=== PATIENT | female | born 1975 | race Caucasian/White ===

== ENCOUNTER 2022-02-01 08:40 | Outpatient (RCR) | payer MEDICAID, SELFPAY ==
[2022-02-01 09:11] VITALS: BP 137/84; PULSE 84; RESP 16; TEMP 36.3; BMI 23.3
--- NOTE | 2022-02-01 10:39 | RAD_ITS ---
STUDY: X-RAY CHEST REASON FOR EXAM: Female, 46 years old. RADIATION CYSTITIS TECHNIQUE: Frontal and lateral views of the chest. COMPARISON: None. FINDINGS: The lungs are clear and expanded. There is no demonstrated pleural abnormality. Normal size heart. Normal mediastinum and michael. Normal visualized pulmonary arteries. Normal visualized aortic arch and descending thoracic aorta. Normal visualized thoracic spine. Normal visualized ribs, clavicles, and shoulders. There is no demonstrated abnormality of the visualized soft tissue structures of the upper abdomen. RAD/Chest PA and Lateral IMPRESSION: Normal x-ray examination of the chest. Electronically Signed: Pratik Weber MD at 1:24 EDT ,
--- NOTE | 2022-02-01 10:58 | EKG12_ITS ---
Test Reason : HYPERBARIC CHAMBER Blood Pressure : / mmHG Vent. Rate : 067 BPM Atrial Rate : 067 BPM P-R Int : 136 ms QRS Dur : 072 ms QT Int : 406 ms P-R-T Axes : 066 086 080 degrees QTc Int : 429 ms Normal sinus rhythm with sinus arrhythmia Nonspecific ST abnormality Abnormal ECG Confirmed by ROLAND PINEDA, PEPE ([id number]), photography editor BRAYAN GRIFFIN ([id number]) on 02/02/2022 2:09:11 PM Referred By: SHONA Confirmed By:PEPE WATKINS MD
[2022-02-01 11:23] LABS: Absolute Lymphocyte Count 1.71 X10^3/uL (0.83-4.51); Absolute Neutrophil Count 5.8 X10^3/uL (2.0-7.7); Basophil# 0.05 X10^3/uL; Basophil% 0.6 % (0-1); Eosinophils% 1.1 % (0-5); Hematocrit 46.3 % (37-47); Hemoglobin 15.3 g/dL (12.0-15.0); Lymphocyte # 1.71 X10^3/ul (0.83-4.51); Lymphocyte % 19.3 % (19-41); Mean Corpuscular Hgb 32.1 pg (27.0-32.0); Mean Corpuscular Volume 97.1 fL (81-99); Mean Platelet Vol. 8.4 fl (6.2-12.0); Monocyte% 13.5 % (0-10); NRBC Flagged by Analyzer 0 % (0-5); Neutrophil # 5.78 X10^3/uL (2.7-7.7); Neutrophil % 65.3 % (47-70); Platelet Count 275 K/mm3 (150-450); RBC Distribution Width CV 13.2 % (11.6-14.6); RBC Distribution Width SD 47.3 fl (35.1-43.9); Red Blood Count 4.77 M/mm3 (4.2-5.4); White Blood Count 8.9 K/mm3 (4.4-11.0)
[2022-02-01 12:13] LABS: AST(SGOT) 16 U/L (15-37); Alanine Aminotransfer ALT/SGPT 20 U/L (13-56); Albumin, Serum 3.6 g/dL (3.2-5.0); Alkaline Phosphatase 99 U/L (45-117); BUN 15 mg/dL (7-18); BUN/Creat Ratio 24.5 RATIO (10-20); Calcium,Total 9.1 mg/dL (8.5-10.1); Chloride 109 mmol/L (98-107); Creatinine, Serum 0.61 mg/dL (0.55-1.02); EST Glomerular Filtration Rate 111 mL/min (>60); Est Glom Filt Rate - Afr Amer 134 mL/min (>60); Estimated Creatinine Clearance 90.17 ml/min; Globulin 3.5 g/dL (2.2-4.2); Glucose 95 mg/dL (74-106); Potassium 3.4 mmol/L (3.5-5.1); Protein, Total 7.1 g/dL (6.4-8.2); Sodium Level 143 mmol/L (136-145)
[2022-02-01 12:14] LABS: Anion Gap 6 (5-15)
--- NOTE | 2022-02-01 12:49 | HBO.CON.PC_ITS ---
Assessment & Plan Assessment/Plan (1) Radiation colitis: PLAN: Patient will be preop had for hyperbaric and chamber using protocol with 2 jean-pierre absolute CHELSEY for 90 minutes without air breaks 1 treatment per day delivered Sunday through Sunday unless otherwise specified for at least 30 treatments to start. Patient is to obtain chest x-ray, complete blood count, and an EKG. After preauthorization has been okayed we will continue with treatments. (2) Radiation cystitis: History of Present Illness Date of Service: 02/01/22 Chief Complaint: HBO consult for radiation cystitis Progress of Wound: This is a 46-year-old female with anal cancer and status post chemo and completed radiation on now she is complex planing of worsening rectal pain following cancer treatment. She has been seen by GI and is undergone many procedures EGDs colonoscopies and MRIs and they have decided she has ulcers in her rectal area. 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 At this point she is trying hyperbaric chamber treatments for the pain which has been shown to help with that. So patient be seen for radiation colitis and for several hyperalgesia's. She has severe pain on urination and is in constant pain all day. PFSH Allergy/AdvReac Type Severity Reaction Status Date / Time SEASONAL Allergy Other Uncoded 02/01/22 09:11 Social History Smoking Status: Current every day smoker ROS Constitutional Constitutional: Reports systems reviewed and no addt'l complaints, except as documented Eyes Eyes: Reports systems reviewed and no addt'l complaints, except as documented ENT HEENT: Reports systems reviewed and no addt'l complaints, except as documented Cardiovascular Cardiovascular: Reports systems reviewed and no addt'l complaints, except as documented Respiratory/Chest Respiratory/Chest: Reports systems reviewed and no addt'l complaints, except as documented Gastrointestinal Gastrointestinal: Reports weight changes and other Details: Severe pain in the rectum Genitourinary Genitourinary: Reports burning urination and difficulty urinating Musculoskeletal Musculoskeletal: Reports arthralgias Integumentary Integumentary: Reports systems reviewed and no addt'l complaints, except as documented Neurologic Neurologic: Reports systems reviewed and no addt'l complaints, except as documented Psychiatric Psychiatric: Reports systems reviewed and no addt'l complaints, except as documented Endocrine Endocrinology: Reports systems reviewed and no addt'l complaints, except as documented Hematologic/Lymphatic Hematologic/Lymphatic: Reports systems reviewed and no addt'l complaints, except as documented Allergic/Immunologic Allergic/Immunologic: Reports systems reviewed and no addt'l complaints, except as documented Physical Exam Physical Exam Const oriented x3 General Appearance: cooperative Exam Limitations: no limitations HEENT normocephalic Head and Scalp: normal to inspection Face and Sinus: normal facial exam Nose: external nose normal General Ear: hearing grossly impaired External Ear: external ears normal Mouth: oral and palatal mucosa normal Eyes PERRL General Eye: normal appearance of both eyes Neck full ROM General: normal visual inspection Resp normal respiratory effort Effort and Inspection: able to speak in complete sentences Auscultation: clear to auscultation bilaterally Cardio regular rate and regular rhythm Palpation: normal PMI Rate: regular rate Rhythm: regular rhythm GI Auscultation: normoactive bowel sounds Palpation: soft and no hepatosplenomegaly external exam normal Back/Spine Cervical Spine: cervical ROM normal Thoracic Spine / Upper Back: normal to inspection Lumbar Spine / Lower Back: normal to inspection Extremity normal to inspection General Extremity: normal exam except as noted Skin no rashes or lesions noted Neuro oriented x3 Psych Appearance: grossly normal Speech: normal speech Thought Content: normal thought content Judgement: judgement good Nursing Assessment and Debridement Post-Debridement Measurements and Additional Note: Post-Debridement Measurements/Treatment WC - Nurse 1 - General Ulcer Assessment Start: 02/01/22 08:57 Freq: Status: Active Protocol: [email or web address].LOWEXT Activity Type Activity Date Activity User E-sign Co-sign Detail Recorded Client Recorded Date Recorded By Document 02/01/22 09:11 [facility] [id number] 02/01/22 09:12 [facility] 02/01/22 09:11 Height and Weight Height 5 ft 2 in Weight 128 lb Weight in Pounds 128.0 lbs Weight Measurement Method Estimated by Patient Body Mass Index (BMI) 23.3 BMI Classification Normal BSA - Ni 1.58 Vital Signs Temperature (97.8 F-99.1 F) 97.3 F L Temperature Source Temporal Pulse Rate (60-100 beats/min) 84 Pulse Location Monitor Respiratory Rate (12-18 breaths/min) 16 Respiratory rate source Observation Oxygen Delivery Method Room Air Blood Pressure (90/60-120/80 mm Hg) 137/84 H Blood Pressure Mean (mm Hg) 101 Source Monitor Position Sitting Blood Pressure Location Left Arm Pain Scale: 0-10 Numeric Is Patient Pain Free? Yes WC - Nurse 2 - General Ulcer CM Notes Start: 02/01/22 08:57 Freq: Status: Active Protocol: Activity Type Activity Date Activity User E-sign Co-sign Detail Recorded Client Recorded Date Recorded By Document 02/01/22 09:32 MW [id number] 02/01/22 09:33 MW 02/01/22 09:32 Is Patient Pain Free? Yes Medical Records Data Attestation: I reviewed the patient's medical records Lab / Micro Data Attestation: I reviewed the patient's lab results. Result Diagrams: 02/01/22 10:31 02/01/22 10:31 Labs: Laboratory Results - last 24 hr 02/01/22 10:31: Sodium 143, Potassium 3.4 L, Chloride 109 H, Carbon Dioxide 28.0, Anion Gap 6, BUN 15, Creatinine 0.61, Estim Creat Clear Calc 90.17, Est GFR (MDRD) Af Amer 134, Est GFR (MDRD) Non-Af 111, BUN/Creatinine Ratio 24.5 H, Glucose 95, Calcium 9.1, Total Bilirubin 0.40, AST 16, ALT 20, Alkaline Phosphatase 99, Total Protein 7.1, Albumin 3.6, Globulin 3.5, Albumin/Globulin Ratio 1.0 02/01/22 10:31: WBC 8.9, RBC 4.77, Hgb 15.3 H, Hct 46.3, MCV 97.1, MCH 32.1 H, M CHC 33.0, RDW Std Deviation 47.3 H, RDW Coeff of May 13.2, Plt Count 275, MPV 8.4, Immature Gran % (Auto) 0.200, Neut % (Auto) 65.3, Lymph % (Auto) 19.3, Vilas % (Auto) 13.5 H, Eos % (Auto) 1.1, Baso % (Auto) 0.6, Absolute Neuts (auto) 5.8, Absolute Lymphs (auto) 1.71, Nucleated RBC % 0
== END 2022-02-12 23:59 | disposition home or self-care (01) ==
LOC: WC 08:40
PROVIDERS: Visit Provider Nurse Practitioner
DX: K52.0 Gastroenteritis and colitis due to radiation (principal); N30.40 Irradiation cystitis without hematuria; Y84.2 Radiological procedure and radiotherapy as the cause of abnormal reaction of the patient, or of later complication, without mention of misadventure at the time of the procedure; K62.6 Ulcer of anus and rectum; R30.9 Painful micturition, unspecified; Z85.048 Personal history of other malignant neoplasm of rectum, rectosigmoid junction, and anus; F17.200 Nicotine dependence, unspecified, uncomplicated; Z92.21 Personal history of antineoplastic chemotherapy; Z92.3 Personal history of irradiation
CPT/HCPCS: 36415; 71046; 80053; 85025; 93005; 99203; G0463

== ENCOUNTER 2022-03-02 10:32 | Outpatient (RCR) | payer MEDICAID, SELFPAY ==
[2022-02-13 00:06] VITALS: BP 137/84; PULSE 84; RESP 16; TEMP 36.3; BMI 23.3
[2022-03-02 12:33] VITALS: BP 112/79; BP 153/85; PULSE 69; PULSE 83; RESP 18; TEMP 37
--- NOTE | 2022-03-02 19:45 | HBO.PN.PCM_ITS ---
History of Present Illness Date of Service: 03/02/22 Chief Complaint: radiation cystitis History of Wound: Ms Barajas presents for her first HBO session for radiation cystitis and proctitis. She has been cleared by ENT. Progress of Wound: Today represents her first session planned for radiation cystitis and proctitis/colitis. Hyperbaric oxygen therapy was administered as per the facility's protocol at 2 CHELSEY for 90 minutes with no air breaks. Patient's vital signs remained stable before and after procedure. On completion of hyperbaric oxygen treatment, redness in her right ear was noted. She denied pain and there was no drainage appreciated. Objective Data Objective Data Vital Signs: Vital Signs Temp Pulse Resp BP 98.6 F 83 18 112/79 03/02/22 12:33 03/02/22 12:33 03/02/22 12:33 03/02/22 12:33 Weight: 128 lb Body Mass Index (BMI) 23.3 Exam Physical Exam Const alert, oriented x3 and no apparent distress General Appearance: cooperative, comfortable and well kempt HEENT normocephalic and head/scalp atraumatic Tympanic Membrane: TM's normal bilaterally Eyes EOMs intact bilaterally Neck full ROM and supple General: normal visual inspection Resp normal respiratory effort Effort and Inspection: able to speak in complete sentences Neuro oriented x3, CN's II-XII intact bilaterally, moves all extremities and no focal motor deficits Psych mental status grossly normal, thought process normal and cooperative Charges/Coding Wound Center CF Procedures HBO Supervision: [id number] Hyperbaric Oxygen; supervision Assessment/Plan Assessment/Plan (1) Radiation cystitis: CODE(S): N30.40 - Irradiation cystitis without hematuria (2) Radiation colitis: CODE(S): K52.0 - Gastroenteritis and colitis due to radiation PLAN: Plan The patient tolerated hyperbaric oxygen therapy well which will be continued as per her medical plan. As above, redness noted in the right ear but no pain or drainage. We will hold off ENT reevaluation at this time however, if significant discomfort is noted, recommend reevaluation by ENT. This note was generated with [employer] dictation software. It may contain incorrect words, spelling, and punctuation that were not noted in checking the note before signing.
== END 2022-03-15 23:59 | disposition home or self-care (01) ==
LOC: WC 10:32
PROVIDERS: Visit Provider Nurse Practitioner
DX: N30.40 Irradiation cystitis without hematuria (principal); K52.0 Gastroenteritis and colitis due to radiation; K62.7 Radiation proctitis; Y84.2 Radiological procedure and radiotherapy as the cause of abnormal reaction of the patient, or of later complication, without mention of misadventure at the time of the procedure
CPT/HCPCS: 99183; G0277